=== PATIENT | female | born 1995 | race Caucasian/White ===

== ENCOUNTER 2017-12-25 12:40 | Emergency (ER) | payer OTHER ==
[~2017-12-25] VITALS: Ht 160 cm; Wt 80.7 kg
[2017-12-25] MEDS ORDERED: PRENATAL + DHA1 EAC1 (12:49)
[2017-12-25] MEDS ORDERED: ZOFRAN4 MG (12:50)
[2017-12-25] MEDS ORDERED: ZANTAC 7575 MG (12:50)
== END 2017-12-25 15:35 | disposition home or self-care (01) ==
LOC: ER 12:40
DX: B34.9 Viral infection, unspecified (principal); J06.9 Acute upper respiratory infection, unspecified

== ENCOUNTER 2018-01-17 12:50 | Outpatient (CLI) | payer OTHER ==
[~2018-01-17 12:50] MED LIST: PRENATAL + DHA1 EAC1; ZANTAC 7575 MG; ZOFRAN4 MG
[2018-01-17] MEDS ORDERED: FLUCONAZOLE150 MG PO (15:07)
[2018-01-17] MEDS ORDERED: KEFLEX500 MG PO (15:07)
== END 2018-01-17 17:04 | disposition home or self-care (01) ==
LOC: OBS/DEL 12:50
DX: O60.02 Preterm labor without delivery, second trimester (principal); O23.42 Unspecified infection of urinary tract in pregnancy, second trimester; Z34.02 Encounter for supervision of normal first pregnancy, second trimester

== ENCOUNTER 2018-05-13 03:05 | Outpatient (CLI) | payer OTHER ==
[~2018-05-13 03:05] MED LIST changes: +FLUCONAZOLE150 MG PO; +KEFLEX500 MG PO
== END 2018-05-13 11:45 | disposition home or self-care (01) ==
LOC: OBS/DEL 03:05
DX: O48.0 Post-term pregnancy (principal); Z34.03 Encounter for supervision of normal first pregnancy, third trimester

== ENCOUNTER 2018-05-15 10:53 | Inpatient (IN) | payer OTHER ==
[~2018-05-15] VITALS: Ht 160 cm; Wt 93.0 kg
== END 2018-05-17 15:40 | DRG 775 ==
LOC: OBS/DEL 10:53 → OB/GYN 14:06 → OBS/DEL 14:06 → LDR 14:06 → OB/GYN 22:43
PROC: 10E0XZZ Delivery of Products of Conception, External Approach (ICD-10-PCS; principal; 2018-05-15)
PROC: 4A1HXCZ Monitoring of Products of Conception, Cardiac Rate, External Approach (ICD-10-PCS; 2018-05-15)
PROC: 4A033R1 Measurement of Arterial Saturation, Peripheral, Percutaneous Approach (ICD-10-PCS; 2018-05-15)
DX: O80 Encounter for full-term uncomplicated delivery (principal); Z3A.40 40 weeks gestation of pregnancy; Z37.0 Single live birth; Z22.330 Carrier of Group B streptococcus

== ENCOUNTER 2022-06-02 10:14 | Outpatient (CLI) | payer OTHER | END 2022-06-02 11:32 | disposition home or self-care (01) | LOC: PRENATAL 10:14 | PROVIDERS: ATTEND Obstetrics & Gynecology Maternal & Fetal Medicine | DX: O36.80X0 Pregnancy with inconclusive fetal viability, not applicable or unspecified (principal); Z36.0 Encounter for antenatal screening for chromosomal anomalies; O99.210 Obesity complicating pregnancy, unspecified trimester; Z91.040 Latex allergy status; Z91.013 Allergy to seafood; Z91.018 Allergy to other foods; Z3A.14 14 weeks gestation of pregnancy ==

== ENCOUNTER 2022-10-12 11:58 | Outpatient (CLI) | payer OTHER | END 2022-10-12 14:31 | disposition home or self-care (01) | LOC: PRENATAL 11:58 | PROVIDERS: ATTEND Obstetrics & Gynecology Maternal & Fetal Medicine | DX: O26.849 Uterine size-date discrepancy, unspecified trimester (principal); O36.8199 Decreased fetal movements, unspecified trimester, other fetus; Z3A.33 33 weeks gestation of pregnancy ==